=== PATIENT | female | born 1965 | race Two or more races ===

== ENCOUNTER 2018-03-02 08:34 | Outpatient (CLI) | payer OTHER | END 2018-03-02 08:36 | disposition home or self-care (01) | LOC: SONOGRAMA 08:34 | DX: E04.1 Nontoxic single thyroid nodule (principal) ==

== ENCOUNTER 2020-03-20 10:58 | Outpatient (CLI) | payer OTHER | END 2020-03-20 11:04 | disposition home or self-care (01) | LOC: SONOGRAMA 10:58 | PROVIDERS: ATTEND Pathology Anatomic Pathology & Clinical Pathology | DX: E04.1 Nontoxic single thyroid nodule (principal) ==

== ENCOUNTER 2022-05-06 16:24 | Outpatient (CLI) | payer OTHER | END 2022-05-06 16:25 | disposition home or self-care (01) | LOC: SONOGRAMA 16:24 | PROVIDERS: ATTEND Pathology Anatomic Pathology & Clinical Pathology | DX: D34 Benign neoplasm of thyroid gland (principal); E04.9 Nontoxic goiter, unspecified; E04.1 Nontoxic single thyroid nodule ==

== ENCOUNTER 2023-01-17 08:18 | Outpatient (CLI) | payer OTHER | END 2023-01-17 08:30 | disposition home or self-care (01) | LOC: NUCLEAR 08:18 | PROVIDERS: ATTEND Internal Medicine Sports Medicine | DX: E05.90 Thyrotoxicosis, unspecified without thyrotoxic crisis or storm (principal); E04.1 Nontoxic single thyroid nodule; E04.9 Nontoxic goiter, unspecified ==

== ENCOUNTER 2023-01-18 09:15 | Outpatient (CLI) | payer OTHER | END 2023-01-18 09:16 | disposition home or self-care (01) | LOC: NUCLEAR 09:15 | PROVIDERS: ATTEND Internal Medicine Sports Medicine | DX: E05.90 Thyrotoxicosis, unspecified without thyrotoxic crisis or storm (principal); E04.1 Nontoxic single thyroid nodule; E04.9 Nontoxic goiter, unspecified ==

== ENCOUNTER 2023-03-10 13:24 | Outpatient (CLI) | payer OTHER | END 2023-03-10 13:26 | disposition home or self-care (01) | LOC: NUCLEAR 13:24 | PROVIDERS: ATTEND Internal Medicine Sports Medicine | DX: E04.1 Nontoxic single thyroid nodule (principal); E05.90 Thyrotoxicosis, unspecified without thyrotoxic crisis or storm; E04.9 Nontoxic goiter, unspecified | CPT/HCPCS: 79005; A9517 ==